=== PATIENT | female | born 1980 | race Caucasian/White ===

== ENCOUNTER 2018-07-28 10:31 | Emergency (ER) | payer OTHER ==
[2018-07-28 10:53] VITALS: BP 130/70
--- NOTE | 2018-07-28 11:33 | UC ---
Eye Complaint HPI - HPI Summary HPI Summary: 37-year-old woman comes in with a chief complaint of right eye redness and discharge since yesterday. Denies any upper respiratory tract infection symptoms. Patient does not wear contact lenses. Denies any trauma. When she cleans it off it makes it better. Blinking arrival makes it worse. It feels irritated but not painful. - History of Current Complaint Chief Complaint: UCEye Stated Complaint: RIGHT EYE CONCERN Time Seen by Provider: 07/28/18 11:28 Hx Last Menstrual Period: on DEPO INJ Pain Intensity: 4 - Allergies/Home Medications Allergies/Adverse Reactions: Allergies Allergy/AdvReac Type Severity Reaction Status Date / Time amoxicillin Allergy Anaphylatic Verified 07/28/18 10:47 Shock Penicillins Allergy Anaphylatic Verified 07/28/18 10:45 Shock Home Medications: Home Medications Aspirin EC TAB* [Ecotrin EC Low Dose 81 MG*] 1 tab DAILY 07/28/18 [History Confirmed 07/28/18] Lisinopril TAB* [Prinivil TAB*] 2.5 mg PO DAILY 07/28/18 [History Confirmed 08/12] PMH/Surg Hx/FS Hx/Imm Hx Previously Healthy: Yes Endocrine History: Diabetes, Dyslipidemia Cardiovascular History: Hypertension - Surgical History Surgical History: Yes Surgery Procedure, Year, and Place: gall bladder. right breast cyst - Family History Known Family History: Positive: Hypertension - Social History Alcohol Use: None Substance Use Type: None Smoking Status (MU): Heavy Every Day Tobacco Smoker Type: Cigarettes Amount Used/How Often: 1/2 PPD Length of Time of Smoking/Using Tobacco: 20 years Review of Systems All Other Systems Reviewed And Are Negative: Yes Constitutional: Positive: Negative Skin: Positive: Negative Eyes: Positive: Drainage, Eye Redness ENT: Positive: Negative Respiratory: Positive: Negative Cardiovascular: Positive: Negative Gastrointestinal: Positive: Negative Motor: Positive: Negative Neurovascular: Positive: Negative Musculoskeletal: Positive: Negative Neurological: Positive: Negative Psychological: Positive: Negative Is Patient Immunocompromised?: No Physical Exam Triage Information Reviewed: Yes Appearance: Well-Appearing, No Pain Distress, Well-Nourished Vital Signs: Initial Vital Signs Temp 97.8 F 07/28/18 10:48 Pulse 107 07/28/18 10:48 Resp 16 07/28/18 10:48 BP 130/70 07/28/18 10:48 Pulse Ox 98 04/04/19 10:48 Vital Signs Reviewed: Yes Eyes: Positive: Conjunctiva Inflamed - RT, Discharge - RT, Other: - PERRLA/EOMI ENT: Positive: Pharynx normal, TMs normal Neck: Positive: Supple Respiratory: Positive: Lungs clear, Normal breath sounds, No respiratory distress Cardiovascular: Positive: RRR Musculoskeletal Exam: Normal Musculoskeletal: Positive: Strength Intact, ROM Intact Neurological Exam: Normal Neurological: Positive: Alert, Muscle Tone Normal Psychological Exam: Normal Psychological: Positive: Age Appropriate Behavior Skin Exam: Normal Eye Complaint Course/Dx - Differential Dx/Diagnosis Provider Diagnosis: Conjunctivitis, right eye Discharge - Sign-Out/Discharge Documenting (check all that apply): Patient Departure All imaging exams completed and their final reports reviewed: No Studies - Discharge Plan Condition: Stable Disposition: HOME Prescriptions: Tobramycin 0.3% OPHTH.GILMA* 1 drop RIGHT EYE Q4H #1 btl Patient Education Materials: Conjunctivitis (ED) Forms: *Work Release Referrals: Jennifer Jaffe MD [Primary Care Provider] - Additional Instructions: FOLLOW UP WITH YOUR DOCTOR IF NOT COMPLETELY IMPROVED. GET REEVALUATED SOONER FOR ANY WORSENING OF YOUR CONDITION OR ANY QUESTIONS OR CONCERNS. - Billing Disposition and Condition Condition: STABLE Disposition: Home
== END 2018-07-28 11:40 | disposition home or self-care (01) ==
LOC: UCCORT 10:31
DX: H10.9 Unspecified conjunctivitis (principal); F17.210 Nicotine dependence, cigarettes, uncomplicated; I10 Essential (primary) hypertension; E11.9 Type 2 diabetes mellitus without complications; Z88.0 Allergy status to penicillin; Z79.899 Other long term (current) drug therapy; Z79.82 Long term (current) use of aspirin
CPT/HCPCS: 99212; G0463

== ENCOUNTER 2019-05-27 09:04 | Emergency (ER) | payer SELFPAY ==
[2019-05-27 09:59] VITALS: BP 143/75
--- NOTE | 2019-05-27 10:15 | UC ---
Upper Extremity HPI - HPI Summary HPI Summary: Patient is 38 year old female, who presents today to the urgent care with right wrist pain since yesterday She works at [employer] and [employer]. While trying to move a head board out of the way to lower a bed with a patient in it, bed fell onto right wrist yesterday at 1500 at work. Continued to work until 0600 this morning. Now that patient has rested it for a few hours, it is throbbing with pain. Patient took a single dose of ibuprofen 1200mg in morning without improvement. - History of Current Complaint Chief Complaint: UCUpperExtremity Stated Complaint: W/C RT ARM INJ Time Seen by Provider: 05/27/19 10:12 Hx Obtained From: Patient Hx Last Menstrual Period: Depo-Provera; March 2019 Pain Intensity: 7 - Allergies/Home Medications Allergies/Adverse Reactions: Allergies Allergy/AdvReac Type Severity Reaction Status Date / Time amoxicillin Allergy Anaphylatic Verified 05/27/19 09:53 Shock Penicillins Allergy Anaphylatic Verified 05/27/19 09:53 Shock Home Medications: Home Medications Colestipol (NF) 1 gm PO TID 05/27/19 [History Confirmed 05/27/19] Ibuprofen TAB* [Motrin TAB* 600 MG] 1,200 mg PO ONCE 05/27/19 [History Confirmed 05/27/19] Ibuprofen TAB* [Motrin TAB* 600 MG] 600 mg PO BID 05/27/19 [History Confirmed ] Omeprazole CAP (NF) [Prilosec CAP* 20 MG] 20 mg PO DAILY 05/27/19 [History Confirmed 05/27/19] glipiZIDE TAB.XL* [Glucotrol XL*] 5 mg PO DAILY 05/27/19 [History Confirmed 05/15] medroxyPROGESTERone ACETATE* [DEPO-Provera] 150 mg IM Q90D 05/27/19 [History Confirmed 05/27/19] PMH/Surg Hx/FS Hx/Imm Hx - Additional Past Medical History Additional PMH: Past Medical History : Diabetes mellitus, chronic back pain, hyperlipidemia, GERD, IBS Past Surgical History: Cholecystectomy, right breast cyst surgery Family History : non contributory Social History : no alcohol,daily smoker, no drug use. Lives with family . Previously Healthy: Yes - Surgical History Surgical History: Yes Surgery Procedure, Year, and Place: gall bladder. right breast cyst - Family History Known Family History: Positive: Hypertension - Social History Alcohol Use: None Substance Use Type: None Smoking Status (MU): Heavy Every Day Tobacco Smoker Type: Cigarettes Amount Used/How Often: 1/2 PPD Length of Time of Smoking/Using Tobacco: Since Age 18 Review of Systems All Other Systems Reviewed And Are Negative: Yes Constitutional: Positive: Negative Skin: Positive: Negative Eyes: Positive: Negative ENT: Positive: Negative Respiratory: Positive: Negative Cardiovascular: Positive: Negative Gastrointestinal: Positive: Negative Genitourinary: Positive: Negative Motor: Positive: Negative Neurovascular: Positive: Negative Musculoskeletal: Positive: Arthralgia - Right wrist Neurological: Positive: Negative Psychological: Positive: Negative Is Patient Immunocompromised?: No Physical Exam - Summary Physical Exam Summary: Vital Signs Reviewed: Yes A+Ox3, no distress Eyes: Conjunctiva Clear ENT: Hearing grossly normal neck: supple Respiratory: Positive: No respiratory distress, No accessory muscle use Cardiovascular: skin color reflect adequate perfusion Musculoskeletal Exam: TERRAZAS x 4 without difficulty Neurological: Positive: Alert, ambulatory without difficulty Psychological: Positive: Normal Response To Family Skin: Positive: no rash, no ecchymosis Right Wrist: Insp/Palp: Skin is warm, dry, and intact. No gross deformity, no bruising or swelling is noted. There is tenderness to palpation in the dorsal wrist. Pain at anatomical snuffbox ROM: Full range of motion but painful Strength: 5/5 Special Tests: Nica test is negative in the right wrist. Carpal tunnel compression test is negative. Phalen's test is negative . Tinel's sign is negative. Neuro: Sensation intact. Pulses 2+ Triage Information Reviewed: Yes Vital Signs: Initial Vital Signs Temp 98.4 F 05/27/19 09:50 Pulse 104 05/27/19 09:50 Resp 18 05/27/19 09:50 BP 143/75 05/27/19 09:50 Pulse Ox 100 05/27/19 09:50 Vital Signs Reviewed: Yes Diagnostics - Radiology No standard instances Radiology Interpretation Completed By: Radiologist - X-ray of the right wrist: FINDINGS: The soft tissues are unremarkable. The bone mineralization is within normal limits. No fracture is identified. Anatomic alignment is maintained. The joint spaces are preserved. IMPRESSION: No displaced fracture. If pain persists , repeat radiograph in 7-10 days recommended. Upper Extremity Course/Dx - Course Course Of Treatment: X-ray of the right wrist: FINDINGS: The soft tissues are unremarkable. The bone mineralization is within normal limits. No fracture is identified. Anatomic alignment is maintained. The joint spaces are preserved. IMPRESSION: No displaced fracture. If pain persists, repeat radiograph in 7-10 days recommended. Likely contusion Advise her to follow up with orthopedics in a week and start using thumb spica splint. Light duty at work without any lifting - Differential Dx/Diagnosis Provider Diagnosis: Contusion of wrist, right Discharge ED - Sign-Out/Discharge Documenting (check all that apply): Patient Departure All imaging exams completed and their final reports reviewed: Yes - Discharge Plan Condition: Stable Disposition: HOME Patient Education Materials: Contusion in Adults (ED) Forms: *Work Release Referrals: Sergio White MD [Medical Doctor] - 1 Week Jennifer Jaffe MD [Primary Care Provider] - Additional Instructions: You can return to light duty at work. No lifting. Note provided. Please keep the brace on all the time. Follow up with orthopedics within a week Tylenol or ibuprofen as needed for pain Patients blood pressure slightly high in Urgent care today , plan follow up with PCP for better control Return to Urgent care / ER if symptoms get worse. - Billing Disposition and Condition Condition: STABLE Disposition: Home
== END 2019-05-27 11:02 | disposition home or self-care (01) ==
LOC: UCCORT 09:04
DX: S60.211A Contusion of right wrist, initial encounter (principal); F17.210 Nicotine dependence, cigarettes, uncomplicated; E11.9 Type 2 diabetes mellitus without complications; M54.9 Dorsalgia, unspecified; G89.29 Other chronic pain; K21.9 Gastro-esophageal reflux disease without esophagitis; K58.9 Irritable bowel syndrome, unspecified; Z88.0 Allergy status to penicillin; Z79.899 Other long term (current) drug therapy; W20.8XXA Other cause of strike by thrown, projected or falling object, initial encounter; Y92.89 Other specified places as the place of occurrence of the external cause; Y99.0 Civilian activity done for income or pay
CPT/HCPCS: 99211; G0463

== ENCOUNTER 2019-07-11 18:10 | Emergency (ER) | payer BC, OTHER ==
--- OUTSIDE RECORDS SUMMARY | 2019-07-11 18:51 | XMS REPORT | Continuity of Care Document ---
:1980 External Reference #:[id number] Author Name Mookie Clay MD (transmitted by agent of provider Margo Moran) Address [address] [place] [id number] Care Team Providers Name Role Phone Jennifer Jaffe M.D. 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 Onset: 10/29/2015 Social History Type Date Description Comments Sex Unknown ETOH Use Denies alcohol use Tobacco Use Start: Unknown Patient is a current smoker, smokes every day Smoking Status Reviewed: 05/31/19 Patient is a current smoker, smokes every day Exercise Type/Frequency Does not exercise Allergies, Adverse Reactions, Alerts Active Allergies Reaction Severity Comments Date Amoxicillin 12/15/2012 Penicillin 10/01/2015 Medications Active Medications SIG Qnty Indications Ordering Provider Date Metformin HCL 1 by mouth twice Unknown 1000mg a day Tablets Colestipol HCL 1 GM tid with Jovanni Schulte, 1gm Meals Tablets Omeprazole Take One Capsule Unknown 20mg Capsules By Mouth Every DR Day Glipizide ER Take One Tablet Unknown 5mg Tablets By Mouth Every ER 24HR Day Ibuprofen Take One Tablet Unknown 600mg Tablets By Mouth Four Times A Day as Needed For Right Knee Pain Immunizations Description No Information Available Vital Signs Date Vital Result Comment 05/31/2019 10:43am Height 62 inches 5'2" Weight 229.00 lb Heart Rate 100 /min BP Systolic 160 mmHg BP Diastolic 92 mmHg Respiratory Rate 18 /min Pain Level 5 BMI (Body Mass Index) 41.9 kg/m2 03/04/2016 10:47am Heart Rate 108 /min BP Systolic Sitting 166 mmHg BP Diastolic Sitting 98 mmHg Pain Level 0 Results Description No Information Available Procedures Description No Information Available Medical Devices Description No Information Available Encounters Type Date Location Provider Dx Diagnosis Office Visit 05/31/2019 [facility] Mookie Clay, S60.211A Contusion of 10:00a at [place] MD right wrist, initial encounter Assessments Date Code Description Provider 05/31/2019 S60.211A Contusion of right wrist, initial encounter Mookie Clay MD Plan of Treatment Future Appointment(s):06/20/2019 8:00 am - Mookie Clay MD at [facility] [place]/31/2019 - Mookie Clay [id number] Contusion of right wrist, initial encounterFollow up:Follow up: 2 weeks Functional Status Description No Information Available Mental Status Description No Information Available Referrals Description No Information Available
--- OUTSIDE RECORDS SUMMARY | 2019-07-11 18:51 | XMS REPORT | Continuity of Care Document ---
:1980 External Reference #:[id number] Author Name Mookie Clay MD (transmitted by agent of provider Lilly Vallecillo) Address [address] [place] [id number] Care Team Providers Name Role Phone Jennifer Jaffe M.D. 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 Onset: 10/29/2015 Social History Type Date Description Comments Sex Unknown ETOH Use Denies alcohol use Tobacco Use Start: Unknown Patient is a current smoker, smokes every day Smoking Status Reviewed: 06/20/19 Patient is a current smoker, smokes every [...] Available Vital Signs Date Vital Result Comment 06/20/2019 8:26am Height 62 inches 5'2" Heart Rate 95 /min BP Systolic 128 mmHg BP Diastolic 82 mmHg Respiratory Rate 18 /min Body Temperature 98.1 F Pain Level 0 05/31/2019 10:43am Height 62 inches 5'2" Weight 229.00 lb Heart Rate 100 /min BP Systolic 160 mmHg BP Diastolic 92 mmHg Respiratory Rate 18 /min Pain Level 5 BMI (Body Mass Index) 41.9 kg/m2 Results Description No Information Available Procedures Description No Information Available Medical Devices Description No Information Available Encounters Description No Information Available Assessments Date Code Description Provider 06/20/2019 S60.211D Contusion of right wrist, subsequent encounter Mookie Clay MD 05/31/2019 S60.211A Contusion of right wrist, initial encounter Mookie Clay MD Plan of Treatment Future Appointment(s):09/19/2019 8:30 am - Mookie Clay MD at [facility] [place]/20/2019 - Mookie Clay [id number] Contusion of right wrist, subsequent encounterFollow up:Follow up: 3 months Functional Status Description No Information Available Mental Status Description No Information Available Referrals Description No Information Available
[2019-07-11 18:56] VITALS: BP 133/67
--- NOTE | 2019-07-11 20:02 | UC ---
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 Pain starting to flare x2 days. Noticed right side neck pain x1 week. Not relieved with OTC meds. 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 Per pt Dr. Jaffe usually "puts her on light duty and gives course of PO tramadol." SHe did not call PCP today bc she slept all day. -the neck pain is new. she doesnt recall when it started, vague onset. no trauma. no fall. no MVA -has pain in rt trap area. no w/n/t. - History of Current Complaint Chief Complaint: UCBackPain Stated Complaint: R HIP,NECK,SHOULDER PAIN Time Seen by Provider: 07/11/19 19:25 Hx Last Menstrual Period: Depo-Provera; March 2019 Pain Intensity: 7 - Allergies/Home Medications Allergies/Adverse Reactions: Allergies Allergy/AdvReac Type Severity Reaction Status Date / Time amoxicillin Allergy Anaphylatic Verified 07/11/19 18:51 Shock Penicillins Allergy Anaphylatic Verified 07/11/19 18:51 Shock Home Medications: Home Medications metFORMIN* [Glucophage 1000 MG TAB *] 1,000 mg PO BID 04/20/16 [History Confirmed 07/11/19] Colestipol (NF) 1 gm PO TID 05/27/19 [History Confirmed 07/11/19] Ibuprofen TAB* [Motrin TAB* 600 MG] 600 mg PO ONCE 05/27/19 [History Confirmed 07/11/19] Omeprazole CAP (NF) [Prilosec CAP* 20 MG] 20 mg PO DAILY 05/27/19 [History Confirmed 07/11/19] glipiZIDE TAB.XL* [Glucotrol Xl*] 5 mg PO DAILY 05/27/19 [History Confirmed ] medroxyPROGESTERone ACETATE* [DEPO-Provera*] 150 mg IM Q90D 05/27/19 [History Confirmed 07/11/19] Cyclobenzaprine TAB* [Flexeril 10 MG TAB*] 5 mg PO BID PRN 5 Days #5 tab [Rx] PMH/Surg Hx/FS Hx/Imm Hx Previously Healthy: Yes Endocrine History: Diabetes - Surgical History Surgical History: Yes Surgery Procedure, Year, and Place: gall bladder. right breast cyst - Family History Known Family History: Positive: Hypertension - Social History Alcohol Use: None Substance Use Type: None Smoking Status (MU): Heavy Every Day Tobacco Smoker Type: Cigarettes Amount Used/How Often: 1/2 PPD Length of Time of Smoking/Using Tobacco: Since Age 18 Review of Systems All Other Systems Reviewed And Are Negative: Yes Constitutional: Positive: Negative. Negative: Fever, Chills, Fatigue Skin: Positive: Negative Eyes: Positive: Negative ENT: Positive: Negative. Negative: Sore Throat, Ear Ache Respiratory: Positive: Negative. Negative: Shortness Of Breath, Cough Cardiovascular: Positive: Negative. Negative: Palpitations, Chest Pain Gastrointestinal: Positive: Negative. Negative: Abdominal Pain, Vomiting, Diarrhea, Nausea Genitourinary: Positive: Negative Motor: Positive: Decreased ROM - neck and rt shoulder Neurovascular: Positive: Negative. Negative: Decreased Sensation Musculoskeletal: Negative: Arthralgia, Myalgia Neurological/Mental Status: Positive: Negative. Negative: Weakness, Paresthesia , Numbness Psychological: Positive: Negative Is Patient Immunocompromised?: No Physical Exam Triage Information Reviewed: Yes Appearance: Well-Appearing, No Pain Distress, Well-Nourished - pleasant. moving slightly Vital Signs: Initial Vital Signs Temp 97.7 F 07/11/19 18:52 Pulse 107 07/11/19 18:52 Resp 22 07/11/19 18:52 BP 133/67 07/11/19 18:52 Pulse Ox 100 07/11/19 18:52 Eye Exam: Normal ENT Exam: Normal ENT: Positive: Pharynx normal Neck: Positive: Supple, No Lymphadenopathy, Other: - tender at rt uppertrap. decreased ROM in all planes mostly left lateral rotation. no bony tendreness Respiratory Exam: Normal Respiratory: Positive: Chest non-tender, Lungs clear, Normal breath sounds, No respiratory distress, No accessory muscle use. Negative: Crackles, Rhonchi, Stridor, Wheezing Cardiovascular Exam: Normal Musculoskeletal Exam: Normal Neurological Exam: Normal Psychological Exam: Normal Skin Exam: Normal Skin: Negative: Rashes Neck Pain Course/Dx - Course Course Of Treatment: Rt cervical torticollis. heat, rest, reassurance. explained that narcotic pain meds are not indicated for sx. -PT may help if not imporved. -OOW x 3 days. -v/u and agreeabel w/ plan. - Differential Dx/Diagnosis Differential Dx/HQI/PQRI: Sprain, Strain, Torticollis Provider Diagnosis: Cervicalgia Discharge ED - Sign-Out/Discharge Documenting (check all that apply): Patient Departure All imaging exams completed and their final reports reviewed: No Studies - Discharge Plan Condition: Stable Disposition: HOME Prescriptions: Cyclobenzaprine TAB* [Flexeril 10 MG TAB*] 5 mg PO BID PRN 5 Days #5 tab PRN Reason: Pain - Moderate Patient Education Materials: Spasmodic Torticollis (ED) Forms: *Work Release Referrals: Jennifer Jaffe MD [Primary Care Provider] - 1 Week Additional Instructions: Use heat and rest for the neck muscle spasm. This can take several days to resolve. - Billing Disposition and Condition Condition: STABLE Disposition: Home
== END 2019-07-11 20:14 | disposition home or self-care (01) ==
LOC: UCCORT 18:10
DX: M54.2 Cervicalgia (principal); F17.210 Nicotine dependence, cigarettes, uncomplicated; E11.9 Type 2 diabetes mellitus without complications; Z79.84 Long term (current) use of oral hypoglycemic drugs; Z88.0 Allergy status to penicillin
CPT/HCPCS: 99212; G0463